=== PATIENT | female | born 1950 | race Hispanic/Latino ===

== ENCOUNTER 2023-04-11 09:27 | Day surgery (SDC) | payer MEDICARE ==
[2023-04-10 14:41] LABS: HEMATOCRIT 35.1 % (36-48); MEAN CORPUSCULAR HEMOGLOBIN 29.6 pg (27.0-33.0); MEAN CORPUSCULAR HGB CONC 29.9 g/dL (32.0-36.0); MEAN CORPUSCULAR VOLUME 98.9 fL (79-99); PLATELET COUNT (AUTO) 162 K/uL (130-400); RED BLOOD CELL COUNT(AUTO) 3.55 MIL/uL (4.00-5.50); RED CELL DISTRIBUTION WIDTH 15.6 % (11.0-15.5); WHITE BLOOD COUNT (AUTO) 7.7 K/uL (4.8-10.8)
[2023-04-10 14:52] VITALS: BP 140/64; PULSE 68; RESP 22
[2023-04-10 14:54] LABS: INR 0.98 (0.85-1.15); PROTHROMBIN TIME 11.4 SEC (9.6-11.6)
[2023-04-10 14:56] LABS: PARTIAL THROMBOPLASTIN TIME 32.3 SEC (26.3-35.5)
[2023-04-10 15:00] LABS: POTASSIUM 6.3 mmol/L (3.5-5.1)
[2023-04-11] VITALS (16 sets, daily range): BP systolic 119–158; BP diastolic 53–78; PULSE 65–80; RESP 12–20
[~2023-04-11] VITALS: Ht 160 cm; Wt 42.6 kg
[~2023-04-11 09:27] MED LIST: ACET325C6 PO; ATOR40TA71 PO; CHOL100046 PO; FISH1CAP50 PO; FOLI0.8T22 PO; ISOS30TA11 PO; MELA3CAP2 PO; METO50TA18 PO; PANT40GR PO; PANT40TA54 PO; RANO500T2 PO; RANO500T6 PO; SENN8.6T32 PO; SEVE800T27 PO; VERI2.5T PO
[2023-04-11] MEDS ORDERED: CEFAZOLIN SODIUM 2 GM VIAL ONE (11:03)
[2023-04-11] MEDS ORDERED: 0.9% NACL 500ML IV.SOLN 500 ML IV ONE (11:03)
[2023-04-11] MEDS ORDERED: ASPI-1443 PO (11:31)
[2023-04-11 11:36] LABS: CREATININE 3.1 mg/dL (0.5-1.5); POTASSIUM 5.2 mmol/L (3.5-5.1)
[2023-04-11] MEDS ORDERED: DEXAMETHASONE SOD PHOSPHATE 10MG/ML 1ML VIAL ONE (12:09)
[2023-04-11] MEDS ORDERED: LIDOCAINE PF 100MG/5ML (2%) SYRINGE 5ML ONE (12:09)
[2023-04-11] MEDS ORDERED: SUCCINYLCHOLINE CHLORIDE 20 MG/ML 10 ML VIAL ONE (12:09)
[2023-04-11] MEDS ORDERED: ONDANSETRON 4MG INJ ONE (12:11)
[2023-04-11] MEDS ORDERED: GLYCOPYRROLATE 1 MG/5 ML SYRINGE ONE (12:11)
[2023-04-11] MEDS ORDERED: PROPOFOL 10 MG/ML 20ML VIAL IV ONE (12:11)
[2023-04-11] MEDS ORDERED: NEOSTIGMINE 5MG/5ML SYR IV ONE (12:11)
[2023-04-11] MEDS ORDERED: ROCURONIUM 10MG/1ML SYR 10 MG/ML ML ONE (12:11)
[2023-04-11] MEDS ORDERED: FENTANYL CITRATE PF 50 MCG/1 ML 2ML VIAL ONE (12:12)
[2023-04-11] MEDS ORDERED: CEFAZOLIN SODIUM 1 GM VIAL ONE (12:26)
[2023-04-11] MEDS ORDERED: BUPIVACAINE/PF 0.25% 30ML VIAL IJ ONE (12:27)
[2023-04-11] MEDS ORDERED: LIDOCAINE HCL 1% MDV 50ML VIAL ONE (12:27)
[2023-04-11] MEDS ORDERED: PROTAMINE SULFATE 10 MG/ML 5 ML VIAL ONE (13:16)
[2023-04-11] MEDS ORDERED: SUGAMMADEX SODIUM 200 MG/2 ML VIAL IV ONE (13:33)
== END 2023-04-11 15:20 ==
LOC: DAH 09:27
PROVIDERS: ATTEND Thoracic Surgery (Cardiothoracic Vascular Surgery)
DX: E11.22 Type 2 diabetes mellitus with diabetic chronic kidney disease (principal); Z20.822 Contact with and (suspected) exposure to COVID-19; I13.2 Hypertensive heart and chronic kidney disease with heart failure and with stage 5 chronic kidney disease, or end stage renal disease; N18.6 End stage renal disease; I50.9 Heart failure, unspecified; J90 Pleural effusion, not elsewhere classified; Z88.3 Allergy status to other anti-infective agents; Z99.2 Dependence on renal dialysis
CPT/HCPCS: 80048 ×2; 85027; 85610; 85730; 86850; 86900; 86901; 87426; 36415 ×2; 71045; 93005; 36821; 82948; 84132; A6260; A4663; A6207; J7030; A4452; J7040; J3010; J0690 ×2; J3490 ×3; J1100; J2710; J0330; J2001; J2720; J2704; J2405; J1644; A4649 ×3; C1713 ×2; A4215; A4223; A4222; A4221; G0168